=== PATIENT | female | born 1950 | race Caucasian/White ===

== ENCOUNTER 2018-03-04 21:00 | Emergency (ER) | payer OTHER ==
[~2018-03-04] VITALS: Ht 152.4 cm; Wt 68.9 kg
[2018-03-04] MEDS ORDERED: COZAAR25 MG (21:14)
[2018-03-04] MEDS ORDERED: NEURIN (21:14)
== END 2018-03-04 23:31 | disposition home or self-care (01) ==
LOC: ER 21:00
DX: K52.9 Noninfective gastroenteritis and colitis, unspecified (principal)

== ENCOUNTER 2018-03-08 10:32 | Outpatient (CLI) | payer OTHER ==
[~2018-03-08 10:32] MED LIST: COZAAR25 MG; NEURIN
== END 2018-03-08 10:38 | disposition home or self-care (01) ==
LOC: LAB 10:32
DX: N20.0 Calculus of kidney (principal)

== ENCOUNTER 2018-03-10 07:18 | Outpatient (CLI) | payer OTHER | END 2018-03-10 16:52 | disposition home or self-care (01) | LOC: MRI 07:18 | DX: R10.12 Left upper quadrant pain (principal) | CPT/HCPCS: 74183; A9575 ==

== ENCOUNTER 2022-01-26 08:00 | Emergency (ER) | payer OTHER ==
[~2022-01-26] VITALS: Ht 152.4 cm; Wt 64.9 kg
== END 2022-01-26 11:29 | disposition home or self-care (01) ==
LOC: ER 08:00
DX: J10.1 Influenza due to other identified influenza virus with other respiratory manifestations (principal); Z20.822 Contact with and (suspected) exposure to COVID-19; I10 Essential (primary) hypertension